=== PATIENT | female | born 1980 | race Caucasian/White ===

== ENCOUNTER 2016-10-18 11:18 | Emergency (ER) | payer OTHER ==
[~2016-10-18] VITALS: Ht 160 cm; Wt 58.3 kg
[~2016-10-18 11:18] MED LIST: Motrin PO
[2016-10-18 12:25] LABS: HEMATOCRIT 41.4 % (36.0-46.0); MCH 28.8 PG (29.0-34.0); MCHC 33.6 G/DL (30.0-36.0); MCV 85.7 FL (83-99); MEAN PLAT.VOLUME 10.3 uM^3 (9.5-12.4); PLATELET COUNT 291 K/uL (156-360); RBC DIS.WIDTH-CV 12.8 % (11.8-14.6); RBC DIS.WIDTH-SD 39.5 % (39-53); RED BLOOD COUNT 4.83 M/uL (3.80-5.20)
[2016-10-18 12:32] LABS: WHITE BLOOD COUNT 14.4 K/uL (4.1-10.2)
[2016-10-18 12:35] LABS: CHLORIDE 106 mEq/L (99-109); POTASSIUM 3.6 mEq/L (3.7-5.4); SODIUM 138 mEq/L (136-147)
[2016-10-18 12:36] LABS: GLUCOSE 105 mg/dL (70-99)
[2016-10-18 12:38] LABS: ANION GAP 12 MEQ/L (2-14)
[2016-10-18 12:40] LABS: GFR ESTIMATE (CALCULATED) > 59 mL/min/
[2016-10-18 12:41] LABS: UREA NITROGEN (BUN) 13 mg/dL (9-23)
[2016-10-18 12:48] LABS: QUANTITATIVE HCG < 4.0 MIU/ML
[2016-10-18 13:06] LABS: ADD MIUA? YES; BILIRUBIN NEGATIVE; BLOOD LARGE; COLOR YELLOW ((YELLOW)); GLUCOSE (STRIP) NEGATIVE; KETONES NEGATIVE; LEUKOCYTES NEGATIVE; NITRITE NEGATIVE; PROTEIN (STRIP) 30; SPECIFIC GRAVITY 1.028 (1.000-1.030); UROBILINOGEN 0.2 MG/DL (0.2-1.0)
[2016-10-18] MEDS ORDERED: VOLTAREN-XR100 MG PO (13:25)
[2016-10-18 13:43] LABS: BACTERIA 1+; CASTS NONE SEEN /LPF; CRYSTALS NONE SEEN; EPITHELIAL CELLS 1+; MUCUS NONE SEEN; RED BLOOD CELLS RARE /HPF (0-5)
[2016-10-18] MEDS ORDERED: KEFLEX500 MG PO (14:26)
[2016-10-18 15:04] VITALS: BP 107/58
== END 2016-10-18 15:06 | disposition home or self-care (01) ==
LOC: EME 11:18
DX: R55 Syncope and collapse (principal); N39.0 Urinary tract infection, site not specified
CPT/HCPCS: 71020; 80048; 81003; 84702; 85027; 87086; 93005; 99281; 99284